=== PATIENT | male | born 2000 | race Caucasian/White ===

== ENCOUNTER 2023-05-26 10:46 | Emergency (ER) | payer MEDICAID ==
[~2023-05-26] VITALS: Ht 177.8 cm; Wt 127.0 kg
[2023-05-26 10:46] VITALS: BP_SYST 120; PULSE 86; RESP 18; TEMP 97; O2SAT 97
[2023-05-26] MEDS ORDERED: NABU-140 PO (12:27)
== END 2023-05-26 12:35 | disposition home or self-care (01) ==
LOC: SED 10:46
DX: S39.012A Strain of muscle, fascia and tendon of lower back, initial encounter (principal); Z79.899 Other long term (current) drug therapy; V89.2XXA Person injured in unspecified motor-vehicle accident, traffic, initial encounter; Y93.89 Activity, other specified; Y92.89 Other specified places as the place of occurrence of the external cause; Y99.8 Other external cause status
CPT/HCPCS: 72072-TC; 72100-TC; 99284

== ENCOUNTER 2023-11-19 22:11 | Emergency (ER) | payer MEDICAID, OTHER ==
[~2023-11-19] VITALS: Ht 177.8 cm; Wt 113.4 kg
[~2023-11-19 22:11] MED LIST: NABU-140 PO
[2023-11-19 22:46] VITALS: BP_SYST 135; PULSE 115; RESP 18; TEMP 99.1; O2SAT 100
[2023-11-20] MEDS ORDERED: PRED20TA PO (00:45)
[2023-11-20] MEDS ORDERED: CIPR500T5 PO (00:45)
[2023-11-20] MEDS ORDERED: IBUP-1971 PO (00:45)
[2023-11-20 00:50] VITALS: BP_SYST 135; PULSE 115; RESP 18; TEMP 99.1; O2SAT 100
== END 2023-11-20 01:02 | disposition home or self-care (01) ==
LOC: SED 22:11
DX: J02.9 Acute pharyngitis, unspecified (principal); R05.9 Cough, unspecified; R19.7 Diarrhea, unspecified; Z79.899 Other long term (current) drug therapy
CPT/HCPCS: 99283